=== PATIENT | male | born 1955 | race American Indian/Alaskan Native ===

== ENCOUNTER 2017-06-11 10:33 | Inpatient (IN) | payer MEDICAID ==
[2017-06-11 11:11] LABS: Basophils # (Auto) 0.1 K/mm3 (0.0-0.1); Basophils % (Auto) 0.5 % (0.0-1.8); Eosinophils % (Auto) 0.1 % (0.0-4.3); Hematocrit 42.1 % (35.5-45.6); Hemoglobin 13.9 gm/dl (11.8-15.2); Lymphocytes # (Auto) 1.9 K/mm3 (1.2-5.4); Lymphocytes % (Auto) 15.4 % (13.4-35.0); Mean Corpuscular HGB Conc 33 % (32-34); Mean Corpuscular Hemoglobin 31 pg (28-32); Mean Corpuscular Volume 93 fl (84-94); Monocytes # (Auto) 1.2 K/mm3 (0.0-0.8); Monocytes % (Auto) 10.2 % (0.0-7.3); Platelet Count 223 K/mm3 (140-440); Red Blood Count 4.51 M/mm3 (3.65-5.03); Red Cell Distribution Width 14.6 % (13.2-15.2)
[2017-06-11 11:28] LABS: Alanine Aminotransferase 9 units/L (7-56); Albumin 3.4 g/dL (3.9-5); BUN/Creatinine Ratio 14; Blood Urea Nitrogen 11 mg/dL (9-20); Calcium 9.1 mg/dL (8.4-10.2); Hemolysis Index 19
--- NOTE | 2017-06-11 14:12 | Emergency Department Report ---
ED General Adult HPI - General Chief complaint: Abdominal Pain Stated complaint: CONSTIPATION Time Seen by Provider: 06/11/17 14:03 Source: patient, RN notes reviewed Mode of arrival: Ambulatory Limitations: Other (patient walks with a walker. The patient is a very poor historian) - History of Present Illness Initial comments: This is a 62-year-old male, the patient is previously unknown to this provider, past medical history includes congestive heart failure, diabetes, hypertension, atrial fibrillation, patient reports poor compliance with outpatient medications , his primary care physician used to be with the [facility], he hasn't really followed up since changing insurances, he presents to the ER with a complaint of constipation. It has been going on for a week. It is constant. He does not have exacerbating or relieving factors. Patient reports taking multiple doses of magnesium citrate daily for the past 4 days. He denies headache, chest pain, shortness of breath, palpitations, hematemesis, bright red blood per rectum. The patient also endorses some intermittent dysuria. He describes intermittent constipation and "diarrhea." His symptoms have been constant for the past 4 days, and do not have exacerbating or relieving factors. -: Gradual Consistency: constant Improves with: none Worsens with: none Associated Symptoms: nausea/vomiting. denies: confusion, chest pain, cough, diaphoresis, headaches, loss of appetite, malaise, rash, shortness of breath, syncope, weakness - Related Data Allergies Allergy/AdvReac Type Severity Reaction Status Date / Time clindamycin AdvReac Unknown Verified 06/12/17 09:09 ED Review of Systems ROS: Stated complaint: CONSTIPATION Other details as noted in HPI Constitutional: denies: fever Eyes: denies: eye discharge ENT: denies: epistaxis Respiratory: denies: SOB with exertion Cardiovascular: denies: chest pain, palpitations Gastrointestinal: constipation Genitourinary: dysuria Musculoskeletal: as per HPI Skin: as per HPI Neurological: as per HPI Psychiatric: as per HPI ED Past Medical Hx - Past Medical History Hx Hypertension: Yes Hx Congestive Heart Failure: Yes Hx Diabetes: Yes Additional medical history: A FIB - Social History Smoking Status: Never Smoker Substance Use Type: None ED Physical Exam - General Limitations: Physical Limitation General appearance: alert, anxious - Head Head exam: Present: atraumatic, normocephalic - Eye Eye exam: Present: normal appearance - ENT ENT exam: Present: normal exam, normal orophraynx, mucous membranes moist, normal external ear exam - Neck Neck exam: Present: normal inspection, full ROM - Respiratory Respiratory exam: Present: normal lung sounds bilaterally. Absent: respiratory distress - Cardiovascular Cardiovascular Exam: Present: tachycardia, irregular rhythm, normal heart sounds. Absent: systolic murmur, diastolic murmur, rubs, gallop - GI/Abdominal GI/Abdominal exam: Present: soft, normal bowel sounds. Absent: distended, tenderness, guarding, rebound, rigid, pulsatile mass - Rectal Rectal exam: Present: deferred - Extremities Exam Extremities exam: Present: pedal edema - Back Exam Back exam: Present: normal inspection, full ROM. Absent: tenderness, CVA tenderness (R), paraspinal tenderness, vertebral tenderness - Neurological Exam Neurological exam: Present: alert, oriented X3, CN II-XII intact, normal gait ( patient walks with a steady gait, although he walks with a walker), other ( Extraocular movements intact. Tongue midline. No facial droop. Facial sensation intact to light touch in the V1, V2, V3 distribution bilaterally. 5 and 5 strength in 4 extremities.. Sensation is intact to light touch in 4 extremities.). Absent: motor sensory deficit - Psychiatric Psychiatric exam: Present: anxious. Absent: suicidal ideation - Skin Skin exam: Present: warm, dry, intact, normal color. Absent: rash ED Course Vital Signs 06/11/17 06/11/17 06/11/17 10:35 14:40 14:42 Temperature 97.8 F Pulse Rate 96 H 170 H 185 H Respiratory 20 12 Rate Blood Pressure 137/79 141/102 O2 Sat by Pulse 96 Oximetry 06/11/17 06/11/17 06/11/17 14:45 14:50 14:58 Temperature Pulse Rate 151 H 119 H Respiratory 16 18 Rate Blood Pressure 141/102 125/72 O2 Sat by Pulse 97 Oximetry 06/11/17 06/11/17 06/11/17 15:01 15:10 15:15 Temperature Pulse Rate 118 H 109 H 90 Respiratory 19 14 Rate Blood Pressure 125/72 109/65 109/65 O2 Sat by Pulse 94 95 Oximetry 06/11/17 06/11/17 06/11/17 15:31 15:43 15:45 Temperature Pulse Rate 100 H 95 H 105 H Respiratory 14 14 Rate Blood Pressure 126/86 126/86 121/82 O2 Sat by Pulse 92 92 Oximetry 06/11/17 06/11/17 06/11/17 16:27 16:30 16:45 Temperature Pulse Rate 104 H 102 H 119 H Respiratory 22 21 Rate Blood Pressure 126/86 126/87 121/92 O2 Sat by Pulse 93 Oximetry 06/11/17 06/11/17 06/11/17 17:00 17:15 17:21 Temperature Pulse Rate 113 H 106 H 113 H Respiratory 24 17 Rate Blood Pressure 122/87 140/84 140/84 O2 Sat by Pulse 94 95 Oximetry 06/11/17 06/11/17 06/11/17 17:31 17:45 18:01 Temperature Pulse Rate 125 H 110 H 117 H Respiratory 15 16 13 Rate Blood Pressure 129/91 135/87 145/92 O2 Sat by Pulse 93 93 94 Oximetry 06/11/17 06/11/17 06/11/17 18:11 18:21 18:30 Temperature Pulse Rate 136 H 112 H 116 H Respiratory 25 H 20 21 Rate Blood Pressure 145/92 145/97 137/85 O2 Sat by Pulse 96 96 94 Oximetry 06/11/17 06/11/17 06/11/17 18:41 18:51 19:00 Temperature Pulse Rate 113 H 115 H 123 H Respiratory 17 15 18 Rate Blood Pressure 137/85 130/67 135/78 O2 Sat by Pulse 95 94 92 Oximetry 06/11/17 06/11/17 06/11/17 19:11 19:21 19:30 Temperature Pulse Rate 116 H 113 H 123 H Respiratory 14 16 13 Rate Blood Pressure 135/78 124/72 124/72 O2 Sat by Pulse 94 94 Oximetry 06/11/17 06/11/17 06/11/17 19:40 19:50 20:01 Temperature Pulse Rate 126 H 120 H 115 H Respiratory 14 17 15 Rate Blood Pressure 124/72 140/84 130/80 O2 Sat by Pulse 95 95 93 Oximetry 06/11/17 06/11/17 06/11/17 20:11 20:21 20:31 Temperature Pulse Rate 130 H 109 H 133 H Respiratory 14 14 15 Rate Blood Pressure 140/84 136/83 136/101 O2 Sat by Pulse 94 95 93 Oximetry 06/11/17 06/11/17 06/11/17 20:41 20:51 21:00 Temperature Pulse Rate 130 H 135 H 127 H Respiratory 17 18 17 Rate Blood Pressure 136/101 139/89 144/77 O2 Sat by Pulse 94 94 93 Oximetry 06/11/17 21:15 Temperature Pulse Rate 151 H Respiratory 21 Rate Blood Pressure 136/70 O2 Sat by Pulse 96 Oximetry - Reevaluation(s) Reevaluation #1: 06/11/17 15:11 Patient has been given 20 mg of diltiazem, slow down to the 160s, received another 30, slowed down to the 110s/120s, additional 20 mg ordered IV, and 30 mg ordered orally. Hospital physician, Dr. Montalvo accepted the patient to the medical service. Reevaluation #2: 06/11/17 15:33 Digoxin is a send out lab, and will take a long time to result, I will defer to the inpatient team to follow up on digoxin level. On the similar note, the patient's urinalysis was not resulted as of yet, and I will defer to the inpatient team to follow this up. ED Medical Decision Making - Lab Data Result diagrams: 06/11/17 10:44 06/11/17 10:44 Vital Signs 06/11/17 10:35 Temperature 97.8 F Pulse Rate 96 H Respiratory 20 Rate Blood Pressure 137/79 O2 Sat by Pulse 96 Oximetry Lab Results 06/11/17 06/11/17 Range/Units 10:44 10:44 WBC 12.0 H (4.5-11.0) K/mm3 RBC 4.51 (3.65-5.03) M/mm3 Hgb 13.9 (11.8-15.2) gm/dl Hct 42.1 (35.5-45.6) % MCV 93 (84-94) fl MCH 31 (28-32) pg MCHC 33 (32-34) % RDW 14.6 (13.2-15.2) % Plt Count 223 (140-440) K/mm3 Lymph % (Auto) 15.4 (13.4-35.0) % [place] % (Auto) 10.2 H (0.0-7.3) % Eos % (Auto) 0.1 (0.0-4.3) % Baso % (Auto) 0.5 (0.0-1.8) % Lymph # 1.9 (1.2-5.4) K/mm3 [place] # 1.2 H (0.0-0.8) K/mm3 Eos # 0.0 (0.0-0.4) K/mm3 Baso # 0.1 (0.0-0.1) K/mm3 Seg Neutrophils % 73.8 H (40.0-70.0) % Seg Neutrophils # 8.9 H (1.8-7.7) K/mm3 Sodium 134 L (137-145) mmol/L Potassium 4.4 (3.6-5.0) mmol/L Chloride 92.1 L (98-107) mmol/L Carbon Dioxide 24 (22-30) mmol/L Anion Gap 22 mmol/L BUN 11 (9-20) mg/dL Creatinine 0.8 (0.8-1.5) mg/dL Estimated GFR > 60 ml/min BUN/Creatinine Ratio 14 % Glucose 482 H (75-100) mg/dL Calcium 9.1 (8.4-10.2) mg/dL Total Bilirubin 1.60 H (0.1-1.2) mg/dL AST 13 (5-40) units/L ALT 9 (7-56) units/L Alkaline Phosphatase 110 (35-129) units/L Total Protein 7.9 (6.3-8.2) g/dL Albumin 3.4 L (3.9-5) g/dL Albumin/Globulin Ratio 0.8 % - EKG Data 06/11/17 14:43 Atrial fibrillation, rapid ventricular response, left axis deviation, not having chest pain, bundle branch block, abnormal EKG, but morphologically consistent with STEMI, QTC prolonged - Radiology Data Radiology results: pending, image reviewed - Medical Decision Making Differential diagnosis, including but not limited to: Electrolyte derangement, thyroid derangement, A. fib with RVR, medication noncompliance Assessment and plan: 62-year-old male with a complaint of constipation. He is afebrile with initially reassuring vital signs, and on physical exam is found to be in A. fib with RVR, and this is corroborated by an EKG. The patient is poorly compliant with his medications. He will be started on IV diltiazem. X- rays pending. Additional laboratory studies pending. Patient is not reliable for follow-up, he'll be admitted for rate control. Hospital physician is paged to facilitate and arrange admission. Critical Care Time: Yes Critical care time in (mins) excluding proc time.: 35 Critical care attestation.: If time is entered above; I have spent that time in minutes in the direct care of this critically ill patient, excluding procedure time. ED Disposition Clinical Impression: Atrial fibrillation with RVR Disposition: [id number] OP ADMIT IP TO THIS HOSP Is pt being admited?: Yes Condition: Good
[2017-06-11] MEDS ORDERED: CARDIZEM IV ONE ×5 (14:37→17:13)
[2017-06-11] MEDS ORDERED: CARDIZEM PO ONE (15:11)
[2017-06-11 15:17] LABS: INR 1.29 (0.87-1.13); Partial Thromboplastin Time 31.6 Sec. (24.2-36.6)
[2017-06-11] MEDS ORDERED: LOVENOX SUB-Q ONE (15:33)
[2017-06-11 15:53] LABS: Bilirubin,Urine NEG (Negative); Blood,Urine LG (Negative); Color,Urine Yellow (Yellow); Nitrite,Urine POS (Negative); Urobilinogen,Urine < 2.0 mg/dL (<2.0)
[2017-06-11 16:14] LABS: WBC,Urine > 182.0 /HPF (0.0-6.0)
--- NOTE | 2017-06-11 17:07 | XRay Report ---
FINAL REPORT PROCEDURE: XR ABD SERIES W CXR 1V TECHNIQUE: Abdominal series complete, including supine and upright AP views of the abdomen and frontal chest. HISTORY: abd pressure constipation COMPARISON: No prior studies are available for comparison. FINDINGS: Heart: Cardiac silhouette is at the upper limit of normal in size. Mediastinum/Vessels: Aortic calcification. Lungs/Pleural space: No infiltrate, effusion, or pneumothorax is seen. Bowel gas pattern: Nonobstructive. Masses or calcifications: None. Bony structures: No acute osseous abnormality. Other: No free intraperitoneal air. IMPRESSION: Nonobstructive bowel gas pattern. Cardiac silhouette is at the upper limit of normal in size.
[2017-06-11] MEDS ORDERED: D50W (25GM) Syringe IV PRN (21:17)
[2017-06-11] MEDS: NOVOLOG SUB-Q SCH (21:45)
--- NOTE | 2017-06-12 00:04 | History and Physical Report ---
History of Present Illness Date of examination: 06/11/17 Date of admission: 06/11/17 15:33 Chief complaint: CC Constipation and Palpitations 4 days History of present illness: History of Present Illness 62-year-old AA male, withpast medical history includes congestive heart failure , diabetes, hypertension, atrial fibrillation, reports poor compliance with outpatient medications, his primary care physician used to be with [facility], he hasn't really followed up since changing insurances, presents to the ER with a complaint of constipation. It has been going on for a week. It is constant. He does not have exacerbating or relieving factors. Patient reports taking multiple doses of magnesium citrate daily for the past 4 days. He denies headache, chest pain, shortness of breath, palpitations, hematemesis, bright red blood per rectum. The patient also endorses some intermittent dysuria. He describes intermittent constipation and "diarrhea." His symptoms have been constant for the past 4 days, and do not have exacerbating or relieving factors. Past Medical History Hx Hypertension: Yes Hx Congestive Heart Failure: Yes Hx Diabetes: Yes Additional medical history: A FIB Surgical hx None Social History Smoking Status: Never Smoker Substance Use Type: None Family Hx Htn Medications and Allergies Allergies Allergy/AdvReac Type Severity Reaction Status Date / Time No Known Allergies Allergy Unverified 06/11/17 10:42 Active Meds: Active Medications Dextrose (D50w (25gm) Syringe) 50 ml IV PRN PRN PRN Reason: Hypoglycemia Influenza Virus Vaccine Quadrival (Fluarix Quad [id number](36 Mos+) 0.5 ml IM .ONCE ONE Stop: 06/12/17 12:01 Insulin Aspart (Novolog) 0 units SUB-Q ACHS DANIA PRN Reason: Protocol Last Admin: 06/11/17 21:45 Dose: 10 units Review of Systems All systems: negative Constitutional: no weight loss, no weight gain, no fever, no chills, no sweats Ears, nose, mouth and throat: no hoarseness, no sore throat, no swelling in mouth, no swelling in throat, no odynophagia Cardiovascular: orthopnea, palpitations, rapid/irregular heart beat, shortness of breath, dyspnea on exertion, no chest pain Respiratory: dyspnea on exertion, no cough, no cough with sputum, no excessive sputum, no hemoptysis Gastrointestinal: constipation, no abdominal pain, no nausea, no vomiting Genitourinary Male: no dysuria, no hematuria, no flank pain, no discharge, no urinary frequency Rectal: no pain Musculoskeletal: no neck stiffness, no neck pain, no shooting arm pain, no arm numbness/tingling, no low back pain, no shooting leg pain Integumentary: no rash, no pruritis, no redness, no sores Neurological: no head injury, no seizures, no syncope Psychiatric: no anxiety, no memory loss, no change in sleep habits, no sleep disturbances, no insomnia Endocrine: no cold intolerance, no heat intolerance, no polyphagia, no excessive thirst, no polydipsia, no polyuria Hematologic/Lymphatic: no easy bruising, no easy bleeding Allergic/Immunologic: no urticaria, no allergic rhinitis, no wheezing Exam - Constitutional Vitals: Temp Pulse Resp BP Pulse Ox 98.1 F 101 H 18 143/80 95 06/11/17 22:46 06/11/17 22:46 06/11/17 22:46 06/11/17 22:46 06/11/17 22:46 General appearance: Present: no acute distress, well-nourished - EENT Eyes: Present: PERRL ENT: hearing intact, clear oral mucosa - Neck Neck: Present: supple, normal ROM - Respiratory Respiratory effort: normal Respiratory: bilateral: CTA, rhonchi - Cardiovascular Heart rate: 120 Rhythm: irregularly irregular Heart Sounds: Present: S1 & S2. Absent: rub, click - Extremities Extremities: no ischemia, pulses intact, pulses symmetrical, No edema Peripheral Pulses: within normal limits - Abdominal General gastrointestinal: Present: soft, non-tender, non-distended, normal bowel sounds Male genitourinary: Present: normal - Rectal Rectal Exam: deferred - Integumentary Integumentary: Present: clear, warm, dry - Musculoskeletal Musculoskeletal: gait normal, strength equal bilaterally - Psychiatric Psychiatric: appropriate mood/affect, intact judgment & insight - Neurologic Neurologic: CNII-XII intact, moves all extremities - Allied Health Allied health notes reviewed: nursing, case management Results - Labs CBC & Chem 7: 06/11/17 10:44 06/11/17 10:44 Labs: Laboratory Last Values WBC 12.0 K/mm3 (4.5-11.0) H 06/11/17 10:44 RBC 4.51 M/mm3 (3.65-5.03) 06/11/17 10:44 Hgb 13.9 gm/dl (11.8-15.2) 06/11/17 10:44 Hct 42.1 % (35.5-45.6) 06/11/17 10:44 MCV 93 fl (84-94) 06/11/17 10:44 MCH 31 pg (28-32) 06/11/17 10:44 MCHC 33 % (32-34) 06/11/17 10:44 RDW 14.6 % (13.2-15.2) 06/11/17 10:44 Plt Count 223 K/mm3 (140-440) 06/11/17 10:44 Lymph % (Auto) 15.4 % (13.4-35.0) 06/11/17 10:44 [place] % (Auto) 10.2 % (0.0-7.3) H 06/11/17 10:44 Eos % (Auto) 0.1 % (0.0-4.3) 06/11/17 10:44 Baso % (Auto) 0.5 % (0.0-1.8) 06/11/17 10:44 Lymph # 1.9 K/mm3 (1.2-5.4) 06/11/17 10:44 [place] # 1.2 K/mm3 (0.0-0.8) H 06/11/17 10:44 Eos # 0.0 K/mm3 (0.0-0.4) 06/11/17 10:44 Baso # 0.1 K/mm3 (0.0-0.1) 06/11/17 10:44 Seg Neutrophils % 73.8 % (40.0-70.0) H 06/11/17 10:44 Seg Neutrophils # 8.9 K/mm3 (1.8-7.7) H 06/11/17 10:44 PT 16.8 Sec. (12.2-14.9) H 06/11/17 14:50 INR 1.29 (0.87-1.13) H 06/11/17 14:50 APTT 31.6 Sec. (24.2-36.6) 06/11/17 14:50 Sodium 134 mmol/L (137-145) L 06/11/17 10:44 Potassium 4.4 mmol/L (3.6-5.0) 06/11/17 10:44 Chloride 92.1 mmol/L (98-107) L 06/11/17 10:44 Carbon Dioxide 24 mmol/L (22-30) 06/11/17 10:44 Anion Gap 22 mmol/L 06/11/17 10:44 BUN 11 mg/dL (9-20) 06/11/17 10:44 Creatinine 0.8 mg/dL (0.8-1.5) 06/11/17 10:44 Estimated GFR > 60 ml/min 06/11/17 10:44 BUN/Creatinine Ratio 14 % 06/11/17 10:44 Glucose 482 mg/dL (75-100) H 06/11/17 10:44 POC Glucose 366 (70-105) H 06/11/17 21:14 Calcium 9.1 mg/dL (8.4-10.2) 06/11/17 10:44 Magnesium 2.20 mg/dL (1.7-2.3) 06/11/17 14:50 Total Bilirubin 1.60 mg/dL (0.1-1.2) H 06/11/17 10:44 AST 13 units/L (5-40) 06/11/17 10:44 ALT 9 units/L (7-56) 06/11/17 10:44 Alkaline Phosphatase 110 units/L (35-129) 06/11/17 10:44 Total Protein 7.9 g/dL (6.3-8.2) 06/11/17 10:44 Albumin 3.4 g/dL (3.9-5) L 06/11/17 10:44 Albumin/Globulin Ratio 0.8 % 06/11/17 10:44 TSH 2.070 mlU/mL (0.270-4.200) 06/11/17 14:50 Free T4 1.42 ng/dL (0.76-1.46) 06/11/17 14:50 Urine Color Yellow (Yellow) 06/11/17 15:06 Urine Turbidity Cloudy (Clear) 06/11/17 15:06 Urine pH 6.0 (5.0-7.0) 06/11/17 15:06 Ur Specific [place] 1.032 (1.003-1.030) H 06/11/17 15:06 Urine Protein 30 mg/dl mg/dL (Negative) 06/11/17 15:06 Urine Glucose (UA) >=500 mg/dL (Negative) 06/11/17 15:06 Urine Ketones Tr mg/dL (Negative) 06/11/17 15:06 Urine Blood Lg (Negative) 06/11/17 15:06 Urine Nitrite Pos (Negative) 06/11/17 15:06 Urine Bilirubin Neg (Negative) 06/11/17 15:06 Urine Urobilinogen < 2.0 mg/dL (<2.0) 06/11/17 15:06 Ur Leukocyte Esterase Lg (Negative) 06/11/17 15:06 Urine WBC (Auto) > 182.0 /HPF (0.0-6.0) H 06/11/17 15:06 Urine RBC (Auto) 34.0 /HPF (0.0-6.0) 06/11/17 15:06 Urine WBC Clumps 3+ /HPF 06/11/17 15:06 - Imaging and Cardiology EKG: report reviewed (Afib with rvr 160 per min) Chest x-ray: report reviewed (Non obstructive bowel gas pattern) Assessment and Plan Advance Directives: Yes (Full code) VTE prophylaxis?: Chemical Plan of care discussed with patient/family: Yes - Patient Problems (1) Atrial fibrillation with RVR Current Visit: Yes Status: Acute Plan to address problem: IV cardizem and po cardizem for now Cardiology consult requested (2) Acute exacerbation of CHF (congestive heart failure) Current Visit: Yes Status: Acute Qualifiers: Congestive heart failure type: combined Qualified Code(s): I50.43 - Acute on chronic combined systolic (congestive) and diastolic (congestive) heart failure Plan to address problem: IV Lasix Check Echo BNP pending (3) HTN (hypertension) Current Visit: Yes Status: Chronic Qualifiers: Hypertension type: essential hypertension Qualified Code(s): I10 - Essential (primary) hypertension Plan to address problem: Reasonable Conr antihypertensives (4) T2DM (type 2 diabetes mellitus) Current Visit: Yes Status: Chronic Qualifiers: Diabetes mellitus complication status: without complication Diabetes mellitus remote computer terminal operator insulin use: without long-term use Qualified Code(s): E11.9 - Type 2 diabetes mellitus without complications Plan to address problem: Blood Glucose levels hogh Home meds not available for reconciliation Started on Levemir 15 sq hs (5) UTI (urinary tract infection) Current Visit: Yes Status: Acute Qualifiers: Urinary tract infection type: acute cystitis Plan to address problem: Started on Rocephin (6) DVT prophylaxis Current Visit: Yes Status: Acute Plan to address problem: On Lovenox
[2017-06-12] MEDS: LOPRESSOR IV PRN ×2 (00:24→05:37)
[2017-06-12] MEDS ORDERED: CARDIZEM ONE (02:59)
[2017-06-12] MEDS ORDERED: LANOXIN PO ONE (03:04)
--- NOTE | 2017-06-12 03:25 | Event Note ---
Date: 06/12/17 Code MET Patient with A. fib of grade 180s He was given IV lopressor with transient decrease in heart rate IV Cardizem given with good results give oral digoxin
[2017-06-12] MEDS ORDERED: ROCEPHIN/NS 2 GM/100 ML 2 GM/100 ML BAG IV SCH ×2 (07:33→10:00)
[2017-06-12] MEDS ORDERED: CARDIZEM CD PO NR (08:00)
[2017-06-12] MEDS ORDERED: DULCOLAX PR ONE (09:00)
--- NOTE | 2017-06-12 09:15 | Progress Note ---
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 I have spoken with [employer] Inspector, Dr. Mina. -Constipation: Treat with Dulcolax suppository 1, order portable abdominal x- ray unremarkable, get CT ab/pelvis, start miralax, -UTI most likely prostatitis: Treat with IV antibiotics, follow urine culture, needs outpatient urology follow-up for PSA and prostate cancer evaluation -A. fib RVR: Cardiology to manage -Type 2 diabetes mellitus, uncontrolled: levemir and ssi -DVT prophylaxis: started on a/c History Interval history: Patient seen and examined. His main compliant is constipation and burning urine. Constipated x 1 week, only relief from mag citrate. His last colonoscopy less than 5 years ago and prostate was ok but details are vague. No cp, sob, palpitations. He just doesn't understand why we are focused on the heart rate and heart when his main issue is constipation. Hospitalist Physical - Physical exam Narrative exam: GEN: Morbidly obese malnutrition are present such as atrophic hypotenar muscles and judaism muscle wasting NAD, AWAKE, ALERT, ORIENTATED x 3 HEENT: NCAT, EOMI, PERRL, OP Clear NECK: supple, no adenopathy, no thyromegaly, no JVD CVS/HEART: irregular irregular, NORMAL S1S2, NO JVD, pulses present bilaterally CHEST/LUNGS: CTA B, Symmetrical chest expansion, good air entry bilaterally GI/Abdomen: soft, NTND, good bowel sounds, no guarding or rebound /Bladder: no suprapubic tenderness, no CVA or paraspinal tenderness EXT/Skin: pretibial edema, multiple healed skin breakdown, left elbow with skin tear. MSK: FROM x 4 Neuro: CN 2-12 grossly intact except left hearing loss, no new focal deficits Psych: calm - Constitutional Vitals: Temp Pulse Resp BP Pulse Ox 98.1 F 170 H 18 135/96 96 06/11/17 22:46 06/12/17 05:37 06/11/17 22:46 06/12/17 05:37 06/12/17 02:55 General appearance: Present: no acute distress, well-nourished Results - Labs CBC & Chem 7: 06/11/17 10:44 06/11/17 10:44 Labs: Laboratory Last Values WBC 12.0 K/mm3 (4.5-11.0) H 06/11/17 10:44 RBC 4.51 M/mm3 (3.65-5.03) 06/11/17 10:44 Hgb 13.9 gm/dl (11.8-15.2) 06/11/17 10:44 Hct 42.1 % (35.5-45.6) 06/11/17 10:44 MCV 93 fl (84-94) 06/11/17 10:44 MCH 31 pg (28-32) 06/11/17 10:44 MCHC 33 % (32-34) 06/11/17 10:44 RDW 14.6 % (13.2-15.2) 06/11/17 10:44 Plt Count 223 K/mm3 (140-440) 06/11/17 10:44 Lymph % (Auto) 15.4 % (13.4-35.0) 06/11/17 10:44 [place] % (Auto) 10.2 % (0.0-7.3) H 06/11/17 10:44 Eos % (Auto) 0.1 % (0.0-4.3) 06/11/17 10:44 Baso % (Auto) 0.5 % (0.0-1.8) 06/11/17 10:44 Lymph # 1.9 K/mm3 (1.2-5.4) 06/11/17 10:44 [place]ole # 1.2 K/mm3 (0.0-0.8) H 06/11/17 10:44 Eos # 0.0 K/mm3 (0.0-0.4) 06/11/17 10:44 Baso # 0.1 K/mm3 (0.0-0.1) 06/11/17 10:44 Seg Neutrophils % 73.8 % (40.0-70.0) H 06/11/17 10:44 Seg Neutrophils # 8.9 K/mm3 (1.8-7.7) H 06/11/17 10:44 PT 16.8 Sec. (12.2-14.9) H 06/11/17 14:50 INR 1.29 (0.87-1.13) H 06/11/17 14:50 APTT 31.6 Sec. (24.2-36.6) 06/11/17 14:50 Sodium 134 mmol/L (137-145) L 06/11/17 10:44 Potassium 4.4 mmol/L (3.6-5.0) 06/11/17 10:44 Chloride 92.1 mmol/L (98-107) L 06/11/17 10:44 Carbon Dioxide 24 mmol/L (22-30) 06/11/17 10:44 Anion Gap 22 mmol/L 06/11/17 10:44 BUN 11 mg/dL (9-20) 06/11/17 10:44 Creatinine 0.8 mg/dL (0.8-1.5) 06/11/17 10:44 Estimated GFR > 60 ml/min 06/11/17 10:44 BUN/Creatinine Ratio 14 % 06/11/17 10:44 Glucose 482 mg/dL (75-100) H 06/11/17 10:44 POC Glucose 327 (70-105) H 06/12/17 03:00 Calcium 9.1 mg/dL (8.4-10.2) 06/11/17 10:44 Magnesium 2.20 mg/dL (1.7-2.3) 06/11/17 14:50 Total Bilirubin 1.60 mg/dL (0.1-1.2) H 06/11/17 10:44 AST 13 units/L (5-40) 06/11/17 10:44 ALT 9 units/L (7-56) 06/11/17 10:44 Alkaline Phosphatase 110 units/L (35-129) 06/11/17 10:44 NT-Pro-B Natriuret Pep 511.7 pg/mL (0-900) 06/12/17 07:50 Total Protein 7.9 g/dL (6.3-8.2) 06/11/17 10:44 Albumin 3.4 g/dL (3.9-5) L 06/11/17 10:44 Albumin/Globulin Ratio 0.8 % 06/11/17 10:44 TSH 2.070 mlU/mL (0.270-4.200) 06/11/17 14:50 Free T4 1.42 ng/dL (0.76-1.46) 06/11/17 14:50 Urine Color Yellow (Yellow) 06/11/17 15:06 Urine Turbidity Cloudy (Clear) 06/11/17 15:06 Urine pH 6.0 (5.0-7.0) 06/11/17 15:06 Ur Specific [place] 1.032 (1.003-1.030) H 06/11/17 15:06 Urine Protein 30 mg/dl mg/dL (Negative) 06/11/17 15:06 Urine Glucose (UA) >=500 mg/dL (Negative) 06/11/17 15:06 Urine Ketones Tr mg/dL (Negative) 06/11/17 15:06 Urine Blood Lg (Negative) 06/11/17 15:06 Urine Nitrite Pos (Negative) 06/11/17 15:06 Urine Bilirubin Neg (Negative) 06/11/17 15:06 Urine Urobilinogen < 2.0 mg/dL (<2.0) 06/11/17 15:06 Ur Leukocyte Esterase Lg (Negative) 06/11/17 15:06 Urine WBC (Auto) > 182.0 /HPF (0.0-6.0) H 06/11/17 15:06 Urine RBC (Auto) 34.0 /HPF (0.0-6.0) 06/11/17 15:06 Urine WBC Clumps 3+ /HPF 06/11/17 15:06
[2017-06-12] MEDS: NOVOLOG SUB-Q SCH ×4 (09:48→21:15)
[2017-06-12] MEDS: K-DUR PO SCH ×2 (09:52→21:15)
[2017-06-12] MEDS ORDERED: Fluarix Quad 2017-2018(36 MOS+ IM ONE (12:00)
--- NOTE | 2017-06-12 12:41 | Consultation ---
History of Present Illness Consult date: 06/12/17 Consult reason: atrial fibrillation History of present illness: The patient is a 62-year-old man, morbidly obese weighing over 400 pounds. He presents to the hospital at this time primary complaints of persistent constipation and lower abdominal pain. While in the emergency room, he was found with multiple other clinical issues including atrial fibrillation and uncontrolled diabetes with a blood sugar 482. Cardiology consultation was requested for management of his atrial fibrillation. He has a long history of atrial fibrillation dating back several years. He states that he was under the care of [facility] group chief operator, and initial attempts at cardioversion were unsuccessful following which he was treated for chronic atrial fibrillation with warfarin and digoxin. Due to loss of his [employer] insurance about 8 months ago, he has been unable to afford his medications and so has been noncompliant with his medications for his atrial fibrillation and diabetes. He denies any history of coronary artery disease or heart failure. On this presentation, there is no chest pain, no unusual shortness of breath, no palpitations and no lower extremity edema. His main complaint was his constipation which he continues to express this is major problem. Past History Past Medical History: atrial fib, diabetes, hypertension Medications and Allergies Allergies Allergy/AdvReac Type Severity Reaction Status Date / Time clindamycin AdvReac Unknown Verified 06/12/17 09:09 Active Meds: Active Medications Dextrose (D50w (25gm) Syringe) 50 ml IV PRN PRN PRN Reason: Hypoglycemia Diltiazem HCl (Cardizem Cd) 180 mg PO QDAY DANIA Enoxaparin Sodium (Lovenox) 40 mg SUB-Q QDAY@2200 DANIA Furosemide (Lasix) 40 mg IV 0600,1800 DANIA Ceftriaxone Sodium 2 gm/ (Sodium Chloride) 20 mls @ 20 mls/10 min IV Q24HR DANIA Insulin Aspart (Novolog) 0 units SUB-Q ACHS DANIA PRN Reason: Protocol Last Admin: 06/12/17 09:48 Dose: 10 units Insulin Detemir (Levemir) 15 units SUB-Q QHS DANIA Metoprolol Tartrate (Lopressor) 5 mg IV Q6H PRN PRN Reason: HENRIETTA HR Last Admin: 06/12/17 05:37 Dose: 5 mg Potassium Chloride (K-Dur) 20 meq PO BID DANIA Last Admin: 06/12/17 09:52 Dose: 20 meq Review of Systems Cardiovascular: shortness of breath, no chest pain, no orthopnea, no palpitations, no rapid/irregular heart beat, no edema, no syncope, no lightheadedness Physical Examination Vital Signs Temp Pulse Resp BP Pulse Ox 97.8 F 96 H 20 137/79 96 06/11/17 10:35 06/11/17 10:35 06/11/17 10:35 06/11/17 10:35 06/11/17 10:35 General appearance: no acute distress, other (morbidly obese) HEENT: Positive: PERRL Neck: Positive: neck supple Cardiac: Positive: irregularly irregular Lungs: Positive: Decreased Breath Sounds Neuro: Positive: Grossly Intact Abdomen: Positive: Soft Male genitourinary: Positive: deferred Skin: Positive: Clear Extremities: Absent: edema Results 06/11/17 10:44 06/11/17 10:44 Coagulation 06/11/17 Range/Units 14:50 PT 16.8 H (12.2-14.9) Sec. INR 1.29 H (0.87-1.13) APTT 31.6 (24.2-36.6) Sec. EKG interpretations - Telemetry EKG Rhythm: Atrial Fibrillation Assessment and Plan - Patient Problems (1) Atrial fibrillation with RVR Current Visit: Yes Status: Acute Plan to address problem: The patient has chronic atrial fibrillation, has not been compliant with his medical therapy including digitalis and warfarin. We will recommend resumption of atrial fibrillation rate control agents, digitalis and Cardizem, and resumption of oral anticoagulation therapy with warfarin. An echocardiogram will be done for left ventricular function assessment. We'll defer to the medical service for management of the patient's presenting constipation and uncontrolled diabetes.
[2017-06-12] MEDS ORDERED: LOPRESSOR IV PRN ×2 (12:46→16:02)
[2017-06-12] MEDS: cefTRIAXone 2 GM in NACL 0.9% 20 ML IV SCH (13:53)
[2017-06-12] MEDS: LANOXIN IV SCH ×2 (14:41→21:14)
[2017-06-12] MEDS: CARDIZEM PO SCH ×2 (14:46→18:47)
[2017-06-12] MEDS ORDERED: NACL ONE (18:31)
[2017-06-12] MEDS: COUMADIN PO SCH (18:47)
--- NOTE | 2017-06-12 19:35 | Cat Scan Report ---
FINAL REPORT PROCEDURE: CT ABDOMEN PELVIS W CON TECHNIQUE: Computerized axial tomography of the abdomen and pelvis was performed after the IV injection of iodinated nonionic contrast. HISTORY: severe constipation, dysuria COMPARISON: No prior studies are available for comparison. FINDINGS: Lower Lung murrell: No focal abnormality seen. Upper Abdomen: The liver is enlarged and shows diffuse decreased density consistent with fatty infiltration. No discrete liver lesions are identified. The gallbladder is unremarkable. The adrenal glands, the pancreas and the spleen are unremarkable. Kidneys, Ureters and Urinary bladder: The kidneys and ureters are unremarkable. The gallbladder is incompletely filled although other stover appears significantly diffusely thickened. I cannot exclude cystitis or muscular hypertrophy.. Retroperitoneum: Atherosclerotic changes are seen in the abdominal aorta. No aneurysm is visualized. Nonspecific subcentimeter lymph nodes are seen in the retroperitoneum. No pathologically enlarged lymph nodes are identified. Bowel: There is no evidence of bowel obstruction or ascites. No free intraperitoneal gas is visualized. No focal bowel loop abnormalities are identified. The appendix is not visualized. Small umbilical hernia containing adipose tissue is visualized. No herniated loops of bowel are seen. Stool burden within the colon is unremarkable. I do not see evidence of constipation. Reproductive organs: There is nonspecific diffuse prostate enlargement. Other: Bilateral spondylolysis is present at L4 with grade 1 spondylolisthesis. No acute bony abnormalities are identified. IMPRESSION: Hepatomegaly with evidence of fatty infiltration of the liver. Stover of the urinary bladder are thicker than expected. This may be due to lack of distension. I cannot exclude cystitis or muscular hypertrophy. Nonspecific diffuse prostate enlargement. No focal bowel loop abnormalities are identified as described above. Bilateral spondylolysis L4 with grade 1 spondylolisthesis.
[2017-06-12] MEDS: LASIX IV SCH (21:14)
[2017-06-12] MEDS: LOVENOX SUB-Q SCH (21:14)
[2017-06-12] MEDS: MIRALAX 3350 PO SCH (21:16)
[2017-06-12] MEDS ORDERED: LEVEMIR SUB-Q SCH (22:00)
[2017-06-13] MEDS: CARDIZEM PO SCH ×3 (00:29→17:55)
[2017-06-13] MEDS: LASIX IV SCH ×2 (05:19→17:56)
[2017-06-13 06:12] LABS: Hematocrit 38.8 % (35.5-45.6); Mean Corpuscular HGB Conc 34 % (32-34); Mean Corpuscular Hemoglobin 31 pg (28-32); Mean Corpuscular Volume 92 fl (84-94); Platelet Count 191 K/mm3 (140-440); Red Blood Count 4.22 M/mm3 (3.65-5.03); Red Cell Distribution Width 14.5 % (13.2-15.2)
[2017-06-13 06:32] LABS: BUN/Creatinine Ratio 13; Blood Urea Nitrogen 8 mg/dL (9-20); Calcium 8.7 mg/dL (8.4-10.2); Hemolysis Index 2
[2017-06-13 07:19] LABS: INR 1.31 (0.87-1.13)
[2017-06-13] MEDS: NOVOLOG SUB-Q SCH ×5 (08:22→22:37)
[2017-06-13] MEDS ORDERED: K-DUR PO ONE (09:01)
[2017-06-13] MEDS: K-DUR PO SCH ×2 (09:23→22:36)
[2017-06-13] MEDS: MIRALAX 3350 PO SCH ×2 (09:29→16:28)
[2017-06-13] MEDS ORDERED: CARDIZEM CD PO SCH (10:00)
[2017-06-13] MEDS: cefTRIAXone 2 GM in NACL 0.9% 20 ML IV SCH (10:39)
--- NOTE | 2017-06-13 13:36 | Progress Note ---
Assessment and Plan - Patient Problems (1) Atrial fibrillation with RVR Current Visit: Yes Status: Acute Plan to address problem: The patient has chronic atrial fibrillation, has not been compliant with his medical therapy including digitalis and warfarin. We will recommend resumption of atrial fibrillation rate control agents, digitalis and Cardizem, and resumption of oral anticoagulation therapy with warfarin. An echocardiogram will be done for left ventricular function assessment. We'll defer to the medical service for management of the patient's presenting constipation and uncontrolled diabetes. Subjective Date of service: 06/13/17 Interval history: Patient is comfortable, no new cardiac complaints. Objective Vital Signs Temp Pulse Resp BP Pulse Ox 06/13/17 11:30 99.7 F H 92 H 18 128/81 95 06/13/17 10:00 18 06/13/17 09:24 167 H 06/13/17 08:17 99.2 F 113 H 22 135/75 95 06/13/17 04:11 98.2 F 114 H 18 148/97 93 06/12/17 23:53 98.0 F 116 H 18 129/72 96 06/12/17 20:00 109 H 06/12/17 19:35 98.3 F 98 H 18 152/89 96 06/12/17 18:47 133 H 139/88 06/12/17 17:34 96 H 139/88 96 06/12/17 14:46 155 H 126/88 06/12/17 14:41 155 H 126/88 - Physical Examination General: No Apparent Distress HEENT: Positive: PERRL Neck: Positive: neck supple Cardiac: Positive: irregularly irregular Lungs: Positive: Decreased Breath Sounds Neuro: Positive: Grossly Intact Abdomen: Positive: Soft Skin: Positive: Clear Extremities: Absent: edema - Labs and Meds Coagulation 06/13/17 Range/Units 04:56 PT 17.0 H (12.2-14.9) Sec. INR 1.31 H (0.87-1.13) CBC 06/13/17 Range/Units 04:56 WBC 12.8 H (4.5-11.0) K/mm3 RBC 4.22 (3.65-5.03) M/mm3 Hgb 13.0 (11.8-15.2) gm/dl Hct 38.8 (35.5-45.6) % Plt Count 191 (140-440) K/mm3 Comprehensive Metabolic Panel 06/13/17 Range/Units 04:56 Sodium 133 L (137-145) mmol/L Potassium 3.5 L D (3.6-5.0) mmol/L Chloride 94.4 L (98-107) mmol/L Carbon Dioxide 26 (22-30) mmol/L BUN 8 L (9-20) mg/dL Creatinine 0.6 L (0.8-1.5) mg/dL Glucose 237 H (75-100) mg/dL Calcium 8.7 (8.4-10.2) mg/dL - Imaging and Cardiology EKG: report reviewed (Afib with rvr 160 per min)
[2017-06-13] MEDS ORDERED: CARDIZEM PO SCH ×2 (14:00→16:00)
--- NOTE | 2017-06-13 15:22 | Progress Note ---
Assessment and Plan Assessment and plan: Patient is a 62 yo man with h/o htn, dm type 2 with peripheral neuropathy, left hearing loss from clindamycin, CHF, atrial fibrillation and noncompliance with medication due to loss of [employer] insurance who presented with constipation and dysuria, he was found to have UTI on urinalysis and AFib with rvr; he received multiple doses of IV Cardizem and one dose of digoxin. I have spoken with [facility] Worker, Dr. Mina. -Constipation: Treat with Dulcolax suppository 1, order portable abdominal x- ray unremarkable, get CT ab/pelvis, start miralax, -UTI most likely prostatitis: Treat with IV antibiotics, follow urine culture, needs outpatient urology follow-up for PSA and prostate cancer evaluation -A. fib RVR: Cardiology to manage -Type 2 diabetes mellitus, uncontrolled: levemir and ssi -DVT prophylaxis: started on a/c -BPH and bladder wall thicken: outpatient urology Evaluation increased Levemir once heart rate under control will discharge, probable tomorrow History Interval history: Patient seen and examined. His main compliant is constipation and burning urine. Constipated x 1 week, only relief from mag citrate. His last colonoscopy less than 5 years ago and prostate was ok but details are vague. No cp, sob, palpitations. He just doesn't understand why we are focused on the heart rate and heart when his main issue is constipation. He did have relief with suppository and miralax Hospitalist Physical - Physical exam Narrative exam: GEN: Morbidly obese malnutrition are present such as atrophic hypotenar muscles and religious muscle wasting NAD, AWAKE, ALERT, ORIENTATED x 3 HEENT: NCAT, EOMI, PERRL, OP Clear NECK: supple, no adenopathy, no thyromegaly, no JVD CVS/HEART: irregular irregular, NORMAL S1S2, NO JVD, pulses present bilaterally CHEST/LUNGS: CTA B, Symmetrical chest expansion, good air entry bilaterally GI/Abdomen: soft, NTND, good bowel sounds, no guarding or rebound /Bladder: no suprapubic tenderness, no CVA or paraspinal tenderness EXT/Skin: pretibial edema, multiple healed skin breakdown, left elbow with skin tear. MSK: FROM x 4 Neuro: CN 2-12 grossly intact except left hearing loss, no new focal deficits Psych: calm - Constitutional Vitals: Temp Pulse Resp BP Pulse Ox 99.7 F H 92 H 18 128/81 95 06/13/17 11:30 06/13/17 11:30 06/13/17 11:30 06/13/17 11:30 06/13/17 11:30 General appearance: Present: no acute distress, well-nourished Results - Labs CBC & Chem 7: 06/13/17 04:56 06/13/17 04:56 Labs: Laboratory Last Values WBC 12.8 K/mm3 (4.5-11.0) H 06/13/17 04:56 RBC 4.22 M/mm3 (3.65-5.03) 06/13/17 04:56 Hgb 13.0 gm/dl (11.8-15.2) 06/13/17 04:56 Hct 38.8 % (35.5-45.6) 06/13/17 04:56 MCV 92 fl (84-94) 06/13/17 04:56 MCH 31 pg (28-32) 06/13/17 04:56 MCHC 34 % (32-34) 06/13/17 04:56 RDW 14.5 % (13.2-15.2) 06/13/17 04:56 Plt Count 191 K/mm3 (140-440) 06/13/17 04:56 Lymph % (Auto) 15.4 % (13.4-35.0) 06/11/17 10:44 [place] % (Auto) 10.2 % (0.0-7.3) H 06/11/17 10:44 Eos % (Auto) 0.1 % (0.0-4.3) 06/11/17 10:44 Baso % (Auto) 0.5 % (0.0-1.8) 06/11/17 10:44 Lymph # 1.9 K/mm3 (1.2-5.4) 06/11/17 10:44 [place] # 1.2 K/mm3 (0.0-0.8) H 06/11/17 10:44 Eos # 0.0 K/mm3 (0.0-0.4) 06/11/17 10:44 Baso # 0.1 K/mm3 (0.0-0.1) 06/11/17 10:44 Seg Neutrophils % 73.8 % (40.0-70.0) H 06/11/17 10:44 Seg Neutrophils # 8.9 K/mm3 (1.8-7.7) H 06/11/17 10:44 PT 17.0 Sec. (12.2-14.9) H 06/13/17 04:56 INR 1.31 (0.87-1.13) H 06/13/17 04:56 APTT 31.6 Sec. (24.2-36.6) 06/11/17 14:50 Sodium 133 mmol/L (137-145) L 06/13/17 04:56 Potassium 3.5 mmol/L (3.6-5.0) L D 06/13/17 04:56 Chloride 94.4 mmol/L (98-107) L 06/13/17 04:56 Carbon Dioxide 26 mmol/L (22-30) 06/13/17 04:56 Anion Gap 16 mmol/L 06/13/17 04:56 BUN 8 mg/dL (9-20) L 06/13/17 04:56 Creatinine 0.6 mg/dL (0.8-1.5) L 06/13/17 04:56 Estimated GFR > 60 ml/min 06/13/17 04:56 BUN/Creatinine Ratio 13 % 06/13/17 04:56 Glucose 237 mg/dL (75-100) H 06/13/17 04:56 POC Glucose 346 (70-105) H 06/13/17 11:32 Hemoglobin A1c 14.8 % (4-6) H 06/13/17 04:56 Calcium 8.7 mg/dL (8.4-10.2) 06/13/17 04:56 Magnesium 2.20 mg/dL (1.7-2.3) 06/11/17 14:50 Total Bilirubin 1.60 mg/dL (0.1-1.2) H 06/11/17 10:44 AST 13 units/L (5-40) 06/11/17 10:44 ALT 9 units/L (7-56) 06/11/17 10:44 Alkaline Phosphatase 110 units/L (35-129) 06/11/17 10:44 NT-Pro-B Natriuret Pep 511.7 pg/mL (0-900) 06/12/17 07:50 Total Protein 7.9 g/dL (6.3-8.2) 06/11/17 10:44 Albumin 3.4 g/dL (3.9-5) L 06/11/17 10:44 Albumin/Globulin Ratio 0.8 % 06/11/17 10:44 TSH 2.070 mlU/mL (0.270-4.200) 06/11/17 14:50 Free T4 1.42 ng/dL (0.76-1.46) 06/11/17 14:50 Urine Color Yellow (Yellow) 06/11/17 15:06 Urine Turbidity Cloudy (Clear) 06/11/17 15:06 Urine pH 6.0 (5.0-7.0) 06/11/17 15:06 Ur Specific [place] 1.032 (1.003-1.030) H 06/11/17 15:06 Urine Protein 30 mg/dl mg/dL (Negative) 06/11/17 15:06 Urine Glucose (UA) >=500 mg/dL (Negative) 06/11/17 15:06 Urine Ketones Tr mg/dL (Negative) 06/11/17 15:06 Urine Blood Lg (Negative) 06/11/17 15:06 Urine Nitrite Pos (Negative) 06/11/17 15:06 Urine Bilirubin Neg (Negative) 06/11/17 15:06 Urine Urobilinogen < 2.0 mg/dL (<2.0) 06/11/17 15:06 Ur Leukocyte Esterase Lg (Negative) 06/11/17 15:06 Urine WBC (Auto) > 182.0 /HPF (0.0-6.0) H 06/11/17 15:06 Urine RBC (Auto) 34.0 /HPF (0.0-6.0) 06/11/17 15:06 Urine WBC Clumps 3+ /HPF 06/11/17 15:06
[2017-06-13] MEDS: LANOXIN PO SCH (16:22)
[2017-06-13] MEDS: COUMADIN PO SCH (16:23)
[2017-06-13] MEDS ORDERED: HUMALOG SC SCH (16:30)
[2017-06-13] MEDS: LEVEMIR SUB-Q SCH (22:37)
[2017-06-13] MEDS: LOVENOX SUB-Q SCH (22:37)
[2017-06-14] MEDS: CARDIZEM PO SCH ×4 (00:44→17:13)
[2017-06-14 05:33] LABS: Hematocrit 38.4 % (35.5-45.6); Hemoglobin 12.8 gm/dl (11.8-15.2); Mean Corpuscular HGB Conc 33 % (32-34); Mean Corpuscular Hemoglobin 31 pg (28-32); Mean Corpuscular Volume 92 fl (84-94); Platelet Count 181 K/mm3 (140-440); Red Blood Count 4.17 M/mm3 (3.65-5.03); Red Cell Distribution Width 14.3 % (13.2-15.2)
[2017-06-14 06:03] LABS: BUN/Creatinine Ratio 13; Blood Urea Nitrogen 8 mg/dL (9-20); Calcium 8.7 mg/dL (8.4-10.2); Hemolysis Index 9
[2017-06-14] MEDS: LASIX IV SCH ×2 (06:11→17:13)
[2017-06-14] MEDS ORDERED: CARDIZEM CD PO SCH (10:00)
[2017-06-14] MEDS: MIRALAX 3350 PO SCH (10:22)
[2017-06-14] MEDS: K-DUR PO SCH ×2 (10:22→22:14)
[2017-06-14] MEDS: cefTRIAXone 2 GM in NACL 0.9% 20 ML IV SCH (10:24)
[2017-06-14] MEDS: NOVOLOG SUB-Q SCH ×7 (10:24→22:15)
--- NOTE | 2017-06-14 10:25 | Query-Infection ---
Dear Nicolas Date:____06/14/17 Field Project Manager/CDS:____Rohit Phone#:____[phone] Exercise your independent professional judgment when responding to this query. Questions asked do not imply a particular answer is desired or expected. We greatly appreciate your clarification on this issue. Clinical Documentation States: 62 year old male was admitted on 06/12/17 The progress note (Dr. Valenzuela 06/13/17) states " presented with constipation and dysuria, he was found to have UTI on urinalysis and AFib with rvr; -UTI most likely prostatitis: Treat with IV antibiotics, " Pulse rate: 185 Respiratory rate: 25 WBC: 12.8 Clinical findings show: (please check applicable parameters) Infection, known /suspected, with some of the following indicators; Specify the infection: 3 General parameters [ ] Fever (core temp >38.30C or 100.40F) [ ] Hypothermia (core temp <36C) [x ] Heart rate >90 bpm [ x] Tachypnea: >20 bpm or pCO2 < 32 mmHg [ ] Altered mental status [ ] Significant edema / +ve fluid balance (>20 ml/kg 24 h) [ ] Hyperglycemia (Bl. glucose >110 mg/dl) w/o diabetes Inflammatory parameters [x ] Leukocytosis (white blood cell count >12,000/l) [ ] Leukopenia (white blood cell count <4,000/l) [ ] Bandemia (immature WBC > 10%) [ ] Leucocyte Left Shift [ ] Plasma procalcitonin>2 SD above the normal value Hemodynamic and tissue perfusion parameters [ ] Arterial hypotension(SBP <90 mmHg, MAP <70 mmHg,or a SBP drop >40 mmHg in adults) [ ] Hyperlactatemia (>3 mmol/l) [ ] Anion Gap (> 11mEG/l) [ ] Decreased capillary refill or mottling Organ dysfunction parameters [ ] Arterial hypoxemia (PaO2/FIO2 <300) [ ] Creatinine increase =0.5 mg/dl [ ] Acute oliguria (urine output <0.5 ml | kg |h or 45 mM/l for at least 2 hrs) [ ] Coagulation abnormalities (INR >1.5 or activated partial thromboplastin time >60 s) [ ] Ileus (absent chikis wel sounds) [ ] Thrombocytopenia (platelet count <100,000/l) [ ] Hyperbilirubinemia (plasma total bilirubin >4 mg/dl) According to the clinical indications above, can Bacteremia be further specified? If so, please indicate below and in your Progress Notes and/ or Discharge Summary. Indicate if the condition was present on admission. PHYSICIAN RESPONSE: [ x] Sepsis [ ] Severe Sepsis [ ] Septic Shock [ ] Septicemia [ ] Sepsis now resolved [ ] SIRS due to non-infectious cause with organ dysfunction [ ] SIRS due to non-infectious cause without organ dysfunction [ ] Other: [ ] Comment/Explanation: Present on Admission: [ x] Yes (Y) [ ] Clinically undeterminable (W) [ ] No (N) [ ] Ruled Out Please also document response in your Progress Notes and/or Discharge Summary and indicate if the condition was present on admission Notes: SIRS/ SIRS WITH ORGAN DYSFUNCTION Systemic inflammatory response syndrome (SIRS) generally refers to the systemic response to trauma/lee or other insult such as Acute Myocardial Infarction, Acute Pancreatitis, and Major Surgery with symptoms including fever, tachycardia , tachypnea, and leukocytosis (1). BACTEREMIA Presence of viable bacteria in the circulating blood (2). This term is reserved for patients that do not manifest above SIRS response. SEPTICEMIA Generally refers to a systemic disease associated with the presence of pathological microorganisms or toxins in the blood, which can include bacteria, viruses, fungi or other organisms (1). SEPSIS Generally refers to SIRS due infection (1). SEVERE SEPSIS Generally refers to sepsis associated with acute organ dysfunction (1). SEPTIC SHOCK Generally refers to circulatory failure associated with severe sepsis (2), and defined as hypotension or hypoperfusion despite adequate fluid resuscitation (1 hour) (3). REFERENCES: 1. [place] [employer]/Society of Critical Care Medicine Consensus Conference. Definitions for sepsis and organ failure and guidelines for the use of innovative therapies in sepsis. Critical Care Med 1992;20:864 - 74. 2. Kana ledezma MM, Kevin MP, Foreign NOEL, Marco Antonio E, Earl D, Yves D, Victorino J, Rachele COBURN , Gonzalo JL, Gabi G; International Sepsis Definitions Conference. 2001 SCCM/ESICM/ACCP/ATS/SIS International Sepsis Definitions Conference. Intensive Care Med. 2002;29(4):530-8. Epub 2002Sep 07. Review. PubMed PMID:[id number] 3. ICD-9-CM Official Guidelines for Coding and Reporting 4. Medscape Drugs, Diseases and Procedures references 5. [employer] Textbook of Internal Medicine. 18th Edition MTDD
--- NOTE | 2017-06-14 10:53 | Progress Note ---
Assessment and Plan Chronic atrial fibrillation on digitalis, Cardizem, and warfarin therapy resumed Diabetes mellitus Noncompliant with medical therapy as an outpatient An echocardiogram done today, reports a normal left ventricular systolic function, EF 50-55%. Continue current management for chronic atrial fibrillation. Subjective Date of service: 06/14/17 Interval history: Stable afib on telemetry monitoring. Objective Vital Signs Temp Pulse Resp BP Pulse Ox 06/14/17 08:02 98.5 F 99 H 20 121/69 95 06/14/17 05:14 98.8 F 95 H 20 116/75 93 06/13/17 23:10 99.2 F 103 H 18 123/60 92 06/13/17 20:27 99.6 F 111 H 18 136/84 95 06/13/17 20:00 112 H 06/13/17 16:30 140 H 06/13/17 16:22 122 H 06/13/17 15:59 98.8 F 122 H 20 134/72 93 06/13/17 11:30 99.7 F H 92 H 18 128/81 95 - Physical Examination General: No Apparent Distress HEENT: Positive: PERRL Cardiac: Positive: irregularly irregular Neuro: Positive: Grossly Intact - Labs and Meds CBC 06/14/17 Range/Units 04:53 WBC 11.0 (4.5-11.0) K/mm3 RBC 4.17 (3.65-5.03) M/mm3 Hgb 12.8 (11.8-15.2) gm/dl Hct 38.4 (35.5-45.6) % Plt Count 181 (140-440) K/mm3 Comprehensive Metabolic Panel 06/14/17 Range/Units 04:53 Sodium 136 L (137-145) mmol/L Potassium 3.6 (3.6-5.0) mmol/L Chloride 94.8 L (98-107) mmol/L Carbon Dioxide 27 (22-30) mmol/L BUN 8 L (9-20) mg/dL Creatinine 0.6 L (0.8-1.5) mg/dL Glucose 146 H (75-100) mg/dL Calcium 8.7 (8.4-10.2) mg/dL - Imaging and Cardiology EKG: report reviewed (Afib with rvr 160 per min)
--- NOTE | 2017-06-14 15:00 | Progress Note ---
Assessment and Plan Assessment and plan: Patient is a 62 yo man with h/o htn, dm type 2 with peripheral neuropathy, left hearing loss from clindamycin, CHF, atrial fibrillation and noncompliance with medication due to loss of [employer] insurance who presented with constipation and dysuria, he was found to have UTI on urinalysis and AFib with rvr; he received multiple doses of IV Cardizem and one dose of digoxin. I have spoken with Sales And Marketing Associate, Dr. Mina. -Constipation: Treat with Dulcolax suppository 1, order portable abdominal x- ray unremarkable, get CT ab/pelvis, start miralax, -UTI most likely prostatitis: Treat with IV antibiotics, follow urine culture, needs outpatient urology follow-up for PSA and prostate cancer evaluation -A. fib RVR: Cardiology to manage -Type 2 diabetes mellitus, uncontrolled: levemir and ssi -DVT prophylaxis: started on a/c -BPH and bladder wall thicken: outpatient urology Evaluation increased Levemir once heart rate under control will discharge, probable tomorrow 06/14/2017: He went to the bathroom and unable to have a BM, his heart increased to the 120s and he became sob with limited activity. Will consult GI regarding the constipation History Interval history: Patient seen and examined. His main compliant is constipation and burning urine. Constipated x 1 week, only relief from mag citrate. His last colonoscopy less than 5 years ago and prostate was ok but details are vague. No cp, sob, palpitations. He just doesn't understand why we are focused on the heart rate and heart when his main issue is constipation. He did have relief with suppository and miralax Hospitalist Physical - Physical exam Narrative exam: GEN: Morbidly obese malnutrition are present such as atrophic hypotenar muscles and religion muscle wasting NAD, AWAKE, ALERT, ORIENTATED x 3 HEENT: NCAT, EOMI, PERRL, OP Clear NECK: supple, no adenopathy, no thyromegaly, no JVD CVS/HEART: irregular irregular, NORMAL S1S2, NO JVD, pulses present bilaterally CHEST/LUNGS: CTA B, Symmetrical chest expansion, good air entry bilaterally GI/Abdomen: soft, NTND, good bowel sounds, no guarding or rebound /Bladder: no suprapubic tenderness, no CVA or paraspinal tenderness EXT/Skin: pretibial edema, multiple healed skin breakdown, left elbow with skin tear. MSK: FROM x 4 Neuro: CN 2-12 grossly intact except left hearing loss, no new focal deficits Psych: calm - Constitutional Vitals: Temp Pulse Resp BP Pulse Ox 98.5 F 118 H 19 135/64 95 06/14/17 08:02 06/14/17 12:04 06/14/17 10:00 06/14/17 12:04 06/14/17 08:02 General appearance: Present: no acute distress, well-nourished Results - Labs CBC & Chem 7: 06/14/17 04:53 06/14/17 04:53 Labs: Laboratory Last Values WBC 11.0 K/mm3 (4.5-11.0) 06/14/17 04:53 RBC 4.17 M/mm3 (3.65-5.03) 06/14/17 04:53 Hgb 12.8 gm/dl (11.8-15.2) 06/14/17 04:53 Hct 38.4 % (35.5-45.6) 06/14/17 04:53 MCV 92 fl (84-94) 06/14/17 04:53 MCH 31 pg (28-32) 06/14/17 04:53 MCHC 33 % (32-34) 06/14/17 04:53 RDW 14.3 % (13.2-15.2) 06/14/17 04:53 Plt Count 181 K/mm3 (140-440) 06/14/17 04:53 Lymph % (Auto) 15.4 % (13.4-35.0) 06/11/17 10:44 [place] % (Auto) 10.2 % (0.0-7.3) H 06/11/17 10:44 Eos % (Auto) 0.1 % (0.0-4.3) 06/11/17 10:44 Baso % (Auto) 0.5 % (0.0-1.8) 06/11/17 10:44 Lymph # 1.9 K/mm3 (1.2-5.4) 06/11/17 10:44 [place] # 1.2 K/mm3 (0.0-0.8) H 06/11/17 10:44 Eos # 0.0 K/mm3 (0.0-0.4) 06/11/17 10:44 Baso # 0.1 K/mm3 (0.0-0.1) 06/11/17 10:44 Seg Neutrophils % 73.8 % (40.0-70.0) H 06/11/17 10:44 Seg Neutrophils # 8.9 K/mm3 (1.8-7.7) H 06/11/17 10:44 PT 17.0 Sec. (12.2-14.9) H 06/13/17 04:56 INR 1.31 (0.87-1.13) H 06/13/17 04:56 APTT 31.6 Sec. (24.2-36.6) 06/11/17 14:50 Sodium 136 mmol/L (137-145) L 06/14/17 04:53 Potassium 3.6 mmol/L (3.6-5.0) 06/14/17 04:53 Chloride 94.8 mmol/L (98-107) L 06/14/17 04:53 Carbon Dioxide 27 mmol/L (22-30) 06/14/17 04:53 Anion Gap 18 mmol/L 06/14/17 04:53 BUN 8 mg/dL (9-20) L 06/14/17 04:53 Creatinine 0.6 mg/dL (0.8-1.5) L 06/14/17 04:53 Estimated GFR > 60 ml/min 06/14/17 04:53 BUN/Creatinine Ratio 13 % 06/14/17 04:53 Glucose 146 mg/dL (75-100) H 06/14/17 04:53 POC Glucose 315 (70-105) H 06/14/17 11:55 Hemoglobin A1c 14.8 % (4-6) H 06/13/17 04:56 Calcium 8.7 mg/dL (8.4-10.2) 06/14/17 04:53 Magnesium 2.20 mg/dL (1.7-2.3) 06/11/17 14:50 Total Bilirubin 1.60 mg/dL (0.1-1.2) H 06/11/17 10:44 AST 13 units/L (5-40) 06/11/17 10:44 ALT 9 units/L (7-56) 06/11/17 10:44 Alkaline Phosphatase 110 units/L (35-129) 06/11/17 10:44 NT-Pro-B Natriuret Pep 511.7 pg/mL (0-900) 06/12/17 07:50 Total Protein 7.9 g/dL (6.3-8.2) 06/11/17 10:44 Albumin 3.4 g/dL (3.9-5) L 06/11/17 10:44 Albumin/Globulin Ratio 0.8 % 06/11/17 10:44 TSH 2.070 mlU/mL (0.270-4.200) 06/11/17 14:50 Free T4 1.42 ng/dL (0.76-1.46) 06/11/17 14:50 Urine Color Yellow (Yellow) 06/11/17 15:06 Urine Turbidity Cloudy (Clear) 06/11/17 15:06 Urine pH 6.0 (5.0-7.0) 06/11/17 15:06 Ur Specific [place] 1.032 (1.003-1.030) H 06/11/17 15:06 Urine Protein 30 mg/dl mg/dL (Negative) 06/11/17 15:06 Urine Glucose (UA) >=500 mg/dL (Negative) 06/11/17 15:06 Urine Ketones Tr mg/dL (Negative) 06/11/17 15:06 Urine Blood Lg (Negative) 06/11/17 15:06 Urine Nitrite Pos (Negative) 06/11/17 15:06 Urine Bilirubin Neg (Negative) 06/11/17 15:06 Urine Urobilinogen < 2.0 mg/dL (<2.0) 06/11/17 15:06 Ur Leukocyte Esterase Lg (Negative) 06/11/17 15:06 Urine WBC (Auto) > 182.0 /HPF (0.0-6.0) H 06/11/17 15:06 Urine RBC (Auto) 34.0 /HPF (0.0-6.0) 06/11/17 15:06 Urine WBC Clumps 3+ /HPF 06/11/17 15:06
--- NOTE | 2017-06-14 15:39 | Consultation ---
History of Present Illness - Reason for Consult Consult date: 06/14/17 Constipation - History of Present Illness See dictated note. Past History Past Medical History: atrial fib, diabetes, hypertension Medications and Allergies Allergies Allergy/AdvReac Type Severity Reaction Status Date / Time clindamycin AdvReac Unknown Verified 06/12/17 09:09 Home Medications Medication Instructions Recorded Confirmed Last Taken Type Humalog 30 units SC AC 06/13/17 06/13/17 06/11/17 17:00 History Insulin Glargine,Hum.rec.anlog 55 unit SC HS 06/13/17 06/13/17 06/11/17 History [Lantus] Active Meds: Active Medications Dextrose (D50w (25gm) Syringe) 50 ml IV PRN PRN PRN Reason: Hypoglycemia Digoxin (Lanoxin) 0.25 mg PO DAILY@1700 [facility] Last Admin: 06/13/17 16:22 Dose: 0.25 mg Diltiazem HCl (Cardizem) 90 mg PO Q6HR [facility] Last Admin: 06/14/17 12:04 Dose: 90 mg Enoxaparin Sodium (Lovenox) 40 mg SUB-Q QDAY@2200 [facility] Last Admin: 06/13/17 22:37 Dose: 40 mg Furosemide (Lasix) 40 mg IV 0600,1800 [facility] Last Admin: 06/14/17 06:11 Dose: 40 mg Ceftriaxone Sodium 2 gm/ (Sodium Chloride) 20 mls @ 20 mls/10 min IV Q24HR [facility] Last Admin: 06/14/17 10:24 Dose: 20 mls/10 min Insulin Aspart (Novolog) 0 units SUB-Q ACHS [facility] PRN Reason: Protocol Last Admin: 06/14/17 12:14 Dose: 8 units Insulin Aspart (Novolog) 30 units SUB-Q AC [facility] Last Admin: 06/14/17 12:15 Dose: 30 units Insulin Detemir (Levemir) 30 units SUB-Q QHS [facility] Last Admin: 06/13/17 22:37 Dose: Not Given Metoprolol Tartrate (Lopressor) 5 mg IV Q2H PRN PRN Reason: HR >130 Last Admin: 06/13/17 09:24 Dose: 5 mg Polyethylene Glycol (Miralax 3350) 17 gm PO QDAY [facility] Last Admin: 06/14/17 10:22 Dose: 17 gm Potassium Chloride (K-Dur) 20 meq PO BID [facility] Last Admin: 06/14/17 10:22 Dose: 20 meq Warfarin Sodium (Coumadin) 10 mg PO DAILY@1700 [facility] PRN Reason: Protocol Stop: 06/15/17 16:59 Last Admin: 06/13/17 16:23 Dose: 10 mg Warfarin Sodium (Coumadin Pharmacy To Dose) 1 each PO PKCONSULT [facility] PRN Reason: Protocol Warfarin Sodium (Coumadin) 7.5 mg PO DAILY@1700 [facility] Exam - Constitutional Vitals: Temp Pulse Resp BP Pulse Ox 98.5 F 118 H 19 135/64 95 06/14/17 08:02 06/14/17 12:04 06/14/17 10:00 06/14/17 12:04 06/14/17 08:02 Results - Labs CBC & Chem 7: 06/14/17 04:53 06/14/17 04:53 Labs: Abnormal lab results 06/13/17 06/13/17 06/13/17 Range/Units 16:04 21:40 22:50 Sodium (137-145) mmol/L Chloride (98-107) mmol/L BUN (9-20) mg/dL Creatinine (0.8-1.5) mg/dL Glucose (75-100) mg/dL POC Glucose 297 H 56 L 122 H (70-105) 06/14/17 06/14/17 06/14/17 Range/Units 04:53 08:08 11:55 Sodium 136 L (137-145) mmol/L Chloride 94.8 L (98-107) mmol/L BUN 8 L (9-20) mg/dL Creatinine 0.6 L (0.8-1.5) mg/dL Glucose 146 H (75-100) mg/dL POC Glucose 211 H 315 H (70-105) Assessment and Plan Pt with 5 d hx of suprapubic fullness sensation with change in BMs to feeling constipated but having small amount of output daily, no bleed. Rectal exam normal. Pt states he had a colonoscopy 2 yrs ago by [facility]. Plan- Check gastrograffin enema to exclude obstruction and provide laxation
[2017-06-14] MEDS: LANOXIN PO SCH (17:13)
[2017-06-14 18:27] LABS: INR 1.08 (0.87-1.13)
[2017-06-14] MEDS: COUMADIN PO SCH (18:48)
[2017-06-14] MEDS: LEVEMIR SUB-Q SCH (22:14)
[2017-06-14] MEDS: LOVENOX SUB-Q SCH (22:14)
[2017-06-15] MEDS: CARDIZEM PO SCH ×2 (01:14→06:10)
--- NOTE | 2017-06-15 01:42 | Consultation ---
REASON FOR CONSULTATION: Constipation. HISTORY OF PRESENT ILLNESS: The patient is a 62-year-old man with a history of congestive heart failure with LVEF equal to 50% to 55% this admission, diabetes, hypertension and atrial fibrillation. The patient presented to the Emergency Room complaining of a 5-day history of suprapubic fullness with mild relief with passing flatus and change in bowel habits from his usual solid once a day to having may be small amounts of liquid stool on a once a day basis. He denied nausea, vomiting, fevers, chills or sweats. There had been no weight loss. He did have a history of colonoscopy 2 years ago at [place], according to him. There was no GI bleeding noted. He denied dysuria or hematuria. Of note, the patient was admitted to the hospital because he was found to be in atrial fibrillation with rapid ventricular response rate, which has been brought under control. An echocardiogram has been done. CT of the abdomen and pelvis was done on 06/12, which was notable for a normal amount of stool noted within the colon and no evidence of obstruction. There was nonspecific diffuse prostate enlargement, and there was hepatomegaly, with fatty liver. The patient denies prior similar symptoms. ALLERGIES: He has an allergy to CLINDAMYCIN. MEDICATIONS: At home, he is on Humalog insulin. PAST MEDICAL HISTORY: He has history of: 1. Diabetes -- poorly compliant. 2. Atrial fibrillation. 3. History of congestive heart failure. FAMILY HISTORY: Noncontributory. SOCIAL HISTORY: Negative for tobacco recently or for alcohol. REVIEW OF SYSTEMS: Negative for chest pain, shortness of breath, cough, hemoptysis, dysuria, hematuria. PHYSICAL EXAMINATION: GENERAL: This is an obese, middle-aged black male, who appears older than stated age. VITAL SIGNS: Temperature 98.5, pulse 118, blood pressure 135/64. HEENT: Pupils are round and reactive. Oropharynx is clear. LUNGS: Clear bilaterally to auscultation. CARDIOVASCULAR: Irregularly/irregular with tachycardia. No extra heart sounds. ABDOMEN: Obese but soft, good bowel sounds and no organomegaly or tenderness to deep palpation. RECTAL: Normal with no masses and soft brown stool. No blood was noted. EXTREMITIES: Show 2+ edema and there are skin changes on both shins consistent with vascular insufficiency. NEUROLOGIC: He is alert, oriented x 3, grossly nonfocal. LABORATORY DATA: His white count is 11.0; hemoglobin 12.8; hematocrit 38.4; MCV of 92; platelet count 181,000. Sodium 136, potassium 3.6, chloride 95, bicarb 27, BUN 8, creatinine 0.6, glucose is 146, AST was 13, ALT 9, alk phos 110, total bilirubin is 1.6. IMPRESSION: Suprapubic fullness -- the patient has the sensation, which has no clear etiology. He feels constipated. CT scan does not confirm evidence of constipation, this can be difficult to assess. I would recommend a Gastrografin enema to exclude obstruction and ensure adequate laxation. If that is negative, a urologic evaluation may be warranted, especially given the thickening of the bladder wall that is seen, which may just represent decompression. Colonoscopy at this point, does not appear to be warranted given the patient had one 2 years ago and has normal labs. Case was discussed with Dr. Valenzuela. JOB# [id number] HRC/NTS
[2017-06-15 05:47] LABS: Hematocrit 38.4 % (35.5-45.6); Hemoglobin 12.8 gm/dl (11.8-15.2); Mean Corpuscular HGB Conc 33 % (32-34); Mean Corpuscular Hemoglobin 31 pg (28-32); Mean Corpuscular Volume 93 fl (84-94); Platelet Count 201 K/mm3 (140-440); Red Blood Count 4.15 M/mm3 (3.65-5.03); Red Cell Distribution Width 14.1 % (13.2-15.2)
[2017-06-15 06:10] LABS: BUN/Creatinine Ratio 19; Blood Urea Nitrogen 13 mg/dL (9-20); Calcium 8.8 mg/dL (8.4-10.2); Hemolysis Index 6
[2017-06-15] MEDS: LASIX IV SCH (06:10)
[2017-06-15] MEDS: NOVOLOG SUB-Q SCH ×4 (09:10→13:51)
[2017-06-15] MEDS: MIRALAX 3350 PO SCH (09:10)
[2017-06-15] MEDS: cefTRIAXone 2 GM in NACL 0.9% 20 ML IV SCH (09:11)
[2017-06-15] MEDS: K-DUR PO SCH (09:12)
--- NOTE | 2017-06-15 09:48 | Progress Note ---
Assessment and Plan Chronic atrial fibrillation, rate control on digitalis, Cardizem, and warfarin therapy Diabetes mellitus Noncompliant with medical therapy as an outpatient An echocardiogram done, reports severe dilation of the right heart chambers. Mild left ventricular systolic dysfunction, EF 45%. Continue current management for chronic atrial fibrillation. Subjective Date of service: 06/15/17 Interval history: No cardiac events reported overnight. Stable afib on telemetry monitoring. Objective Vital Signs Temp Pulse Resp BP Pulse Ox 06/15/17 08:33 99.4 F 91 H 20 118/57 95 06/15/17 06:10 103 H 106/63 06/15/17 04:28 98.6 F 103 H 20 106/63 93 06/15/17 01:14 101 H 108/46 06/15/17 00:19 98.6 F 101 H 20 106/49 92 06/14/17 19:34 98.9 F 99 H 22 135/77 92 06/14/17 17:13 105 H 142/77 06/14/17 16:43 101.0 F H 104 H 20 142/77 93 06/14/17 12:04 118 H 135/64 06/14/17 11:47 98.3 F 87 20 135/64 96 06/14/17 10:00 19 - Physical Examination Cardiac: Positive: irregularly irregular - Labs and Meds Coagulation 06/14/17 Range/Units 16:47 PT 14.6 (12.2-14.9) Sec. INR 1.08 (0.87-1.13) CBC 06/15/17 Range/Units 04:50 WBC 9.3 (4.5-11.0) K/mm3 RBC 4.15 (3.65-5.03) M/mm3 Hgb 12.8 (11.8-15.2) gm/dl Hct 38.4 (35.5-45.6) % Plt Count 201 (140-440) K/mm3 Comprehensive Metabolic Panel 06/15/17 Range/Units 04:50 Sodium 133 L (137-145) mmol/L Potassium 3.7 (3.6-5.0) mmol/L Chloride 92.8 L (98-107) mmol/L Carbon Dioxide 27 (22-30) mmol/L BUN 13 (9-20) mg/dL Creatinine 0.7 L (0.8-1.5) mg/dL Glucose 304 H (75-100) mg/dL Calcium 8.8 (8.4-10.2) mg/dL - Imaging and Cardiology EKG: report reviewed (Afib with rvr 160 per min)
[2017-06-15] MEDS ORDERED: CARDIZEM CD PO SCH ×2 (10:00→11:00)
--- NOTE | 2017-06-15 10:00 | Gastroenterology Progress Note ---
Assessment and Plan 1.suprapubic fullness 2.constipation? -pt reports BMs x 3 with small amount of formed stool overnight and this am with slight improvement in suprapubic fullness sensation -CT scan does not confirm evidence of constipation -will order Gastrografin enema today to exclude obstruction and ensure adequate laxation -if negative will consider urologic evaluation given thickening of the bladder wall that is seen -last colonoscopy 2 years ago, no plans to repeat at this time -continue Miralax and supportive care -will follow Subjective Date of service: 06/15/17 Principal diagnosis: constipation Interval history: Patient walking from bathroom to bed this am w/o distress. Reports BMs x 3 overnight and this am with small amount of formed stool. States suprapubic fullness sensation is still present but seems to be slightly improved after BMs. No abd pain or N/V. Objective - Constitutional Vitals: Temp Pulse Resp BP Pulse Ox 99.4 F 91 H 20 118/57 95 06/15/17 08:33 06/15/17 08:33 06/15/17 08:33 06/15/17 08:33 06/15/17 08:33 General appearance: no acute distress, obese - EENT Eyes: PERRL, EOM intact ENT: hearing intact - Respiratory Respiratory: bilateral: CTA - Cardiovascular Rhythm: irregularly irregular Heart Sounds: Present: S1 & S2 - Gastrointestinal General gastrointestinal: Present: soft, non-tender, non-distended, normal bowel sounds - Neurologic Neurological: alert and oriented x3 - Labs CBC & Chem 7: 06/15/17 04:50 06/15/17 04:50 Labs: Laboratory Results - last 24 hr 06/14/17 06/14/17 06/14/17 11:55 16:47 16:49 WBC RBC Hgb Hct MCV MCH MCHC RDW Plt Count PT 14.6 INR 1.08 Sodium Potassium Chloride Carbon Dioxide Anion Gap BUN Creatinine Estimated GFR BUN/Creatinine Ratio Glucose POC Glucose 315 H 106 H Calcium 06/14/17 06/15/17 06/15/17 21:11 04:50 04:50 WBC 9.3 RBC 4.15 Hgb 12.8 Hct 38.4 MCV 93 MCH 31 MCHC 33 RDW 14.1 Plt Count 201 PT INR Sodium 133 L Potassium 3.7 Chloride 92.8 L Carbon Dioxide 27 Anion Gap 17 BUN 13 Creatinine 0.7 L Estimated GFR > 60 BUN/Creatinine Ratio 19 Glucose 304 H POC Glucose 305 H Calcium 8.8
--- NOTE | 2017-06-15 13:21 | Fluoroscopy Report ---
Gastrografin enema. History: Constipation. Findings: Gastrografin was instilled in a retrograde fashion. The colon is normal in course and caliber. Mild scattered stool is identified.
[2017-06-15 13:52] VITALS: BP 138/82
--- NOTE | 2017-06-15 14:18 | Discharge Summary ---
Providers - Providers Date of Admission: 06/11/17 15:33 Date of discharge: 06/15/17 Attending physician: DAVID BERMAN 06/14/17 12:52 Consult to Physician [CONS] Routine Consulting Provider: SUKH MORRIS Reason For Exam: constipation Place consult to:: gi Notified:: office Phone number called:: [phone] Was contact made?: Yes If yes, spoke with:: kristin Mckinley called:: 12:58 06/12/17 07:22 Consult to Physician [CONS] Routine Consulting Provider: ARTURO BEASLEY Reason For Exam: afib with rvr Place consult to:: Notified:: Phone number called:: [phone] Was contact made?: Yes If yes, spoke with:: KIMBERLY Time called:: 09:47 Comment:: NAV 06/12/17 07:45 Consult to Wound/ET Nurse [CONS] Routine Reason For Exam: wound eval Primary care physician: JONATHAN MAYFIELD Hospitalization Condition: Stable Hospital course: Patient is a 62 yo man with h/o htn, dm type 2 with peripheral neuropathy, left hearing loss from clindamycin, CHF, atrial fibrillation and noncompliance with medication due to loss of [employer] insurance who presented with constipation and dysuria, he was found to have UTI on urinalysis and AFib with rvr; he received multiple doses of IV Cardizem and one dose of digoxin. I have spoken with Flight Readiness Technician, Dr. Beasley. -Constipation: Treat with Dulcolax suppository 1, order portable abdominal x- ray unremarkable, get CT ab/pelvis, start miralax, -UTI most likely prostatitis: Treat with IV antibiotics, follow urine culture, needs outpatient urology follow-up for PSA and prostate cancer evaluation -A. fib RVR: Cardiology to manage -Type 2 diabetes mellitus, uncontrolled: levemir and ssi -DVT prophylaxis: started on a/c -BPH and bladder wall thicken: outpatient urology Evaluation increased Levemir once heart rate under control will discharge, probable tomorrow 06/14/2017: He went to the bathroom and unable to have a BM, his heart increased to the 120s and he became sob with limited activity. Will consult GI regarding the constipation d/w GI Disposition: DC-01 TO HOME OR SELFCARE Time spent for discharge: 34 minutes Core Measure Documentation - Palliative Care Palliative Care/ Comfort Measures: Not Applicable - Core Measures Any of the following diagnoses?: none - VTE Discharge Requirements Deep Vein Thrombosis/Pulmonary Embolism Present on Admission: No Has pt received <5 days of overlap therapy or INR<2.0: No Anticoagulant overlap therapy prescribed at discharge: No Contraindication No Overlap Therapy order at DC: Not Indicated Exam - Physical Exam Narrative exam: GEN: Morbidly obese malnutrition are present such as atrophic hypotenar muscles and judaism muscle wasting NAD, AWAKE, ALERT, ORIENTATED x 3 HEENT: NCAT, EOMI, PERRL, OP Clear NECK: supple, no adenopathy, no thyromegaly, no JVD CVS/HEART: irregular irregular, NORMAL S1S2, NO JVD, pulses present bilaterally CHEST/LUNGS: CTA B, Symmetrical chest expansion, good air entry bilaterally GI/Abdomen: soft, NTND, good bowel sounds, no guarding or rebound /Bladder: no suprapubic tenderness, no CVA or paraspinal tenderness EXT/Skin: pretibial edema, multiple healed skin breakdown, left elbow with skin tear. MSK: FROM x 4 Neuro: CN 2-12 grossly intact except left hearing loss, no new focal deficits Psych: calm - Constitutional Vitals: Temp Pulse Resp BP Pulse Ox 99.4 F 80 18 138/82 95 06/15/17 08:33 06/15/17 13:52 06/15/17 10:00 06/15/17 13:52 06/15/17 08:33 Plan Activity: other (no strenous activity until cleared by Cardiology) Diet: low salt Additional Instructions: Check Warfarin level with [facility] Flight Readiness Technician office (address on the business card of Dr. Beasley) on Tuesday between 8-3pm . See Urologist, Dr. Bernardo for BPH and prostate Follow up with: JONATHAN MAYFIELD MD [Primary Care Provider] - 3-5 Days MARC COLON MD [Staff Physician] - 7 Days NUSRAT ALANIS NP [Advanced Practice Nurse] - 3 Days Forms: Warfarin Discharge Instruction Prescriptions: RX: Insulin Detemir [Levemir] 30 units SUB-Q QHS #30 units Cefuroxime [Ceftin] 500 mg PO BID #5 day RX: Digoxin [Lanoxin] 0.25 mg PO DAILY@1700 #30 tablet RX: Diltiazem Cd [Cardizem CD] 360 mg PO QDAY #30 day RX: Polyethylene Glycol 3350 [Miralax 3350] 17 gm PO QDAY PRN #30 powd.pack PRN Reason: Constipation RX: Potassium Chloride [K-Dur] 20 meq PO BID #30 day RX: Warfarin [Coumadin] 10 mg PO DAILY@1700 #30 day
[2017-06-15 14:54] LABS: INR 1.38 (0.87-1.13)
[2017-06-15] MEDS ORDERED: COUMADIN PO SCH ×3 (17:00)
== END 2017-06-15 15:53 | disposition home or self-care (01) | DRG 871 ==
LOC: ED 10:33 → 4A 15:33
PROVIDERS: ADMIT Internal Medicine; ATTEND Internal Medicine
PROC: 3E0234Z Introduction of Serum, Toxoid and Vaccine into Muscle, Percutaneous Approach (ICD-10-PCS; principal; 2017-06-12)
DX: A41.9 Sepsis, unspecified organism (principal); I50.43 Acute on chronic combined systolic (congestive) and diastolic (congestive) heart failure; I48.91 Unspecified atrial fibrillation; N39.0 Urinary tract infection, site not specified; N41.0 Acute prostatitis; K59.00 Constipation, unspecified; E11.42 Type 2 diabetes mellitus with diabetic polyneuropathy; I11.0 Hypertensive heart disease with heart failure; N40.0 Benign prostatic hyperplasia without lower urinary tract symptoms; Z23 Encounter for immunization; Z91.14 Patient's other noncompliance with medication regimen; Z88.1 Allergy status to other antibiotic agents
CPT/HCPCS: 36415; 74022; 74177; 74270; 80048; 80053; 81001; 82962; 83036; 83735; 83880; 84439; 84443; 85025; 85027; 85610; 85730; 90686; 93005; 93010; 93306; 96374; J0696; J1160; J1650; J1815; J1818; J1940; Q9963; Q9967

== ENCOUNTER 2017-11-25 12:22 | Emergency (ER) | payer MEDICAID ==
[2017-11-25 13:30] LABS: Bilirubin,Urine NEG (Negative); Blood,Urine LG (Negative); Color,Urine Yellow (Yellow); Hyaline Casts,Urine 1 /LPF; Mucus,Urine FEW /HPF; Urobilinogen,Urine < 2.0 mg/dL (<2.0)
[2017-11-25 13:41] LABS: Albumin 2.8 g/dL (3.9-5); Basophils % (Auto) 0.3 % (0.0-1.8); Calcium 8.5 mg/dL (8.4-10.2); Eosinophils % (Auto) 0.1 % (0.0-4.3); Hematocrit 27.9 % (35.5-45.6); Hemoglobin 9.1 gm/dl (11.8-15.2); Lymphocytes # (Auto) 1.1 K/mm3 (1.2-5.4); Lymphocytes % (Auto) 9.9 % (13.4-35.0); Mean Corpuscular HGB Conc 33 % (32-34); Mean Corpuscular Hemoglobin 29 pg (28-32); Mean Corpuscular Volume 89 fl (84-94); Mean Platelet Volume 8.8 fl (6-12); Monocytes # (Auto) 0.9 K/mm3 (0.0-0.8); Monocytes % (Auto) 8.5 % (0.0-7.3); Platelet Count 286 K/mm3 (140-440); Red Blood Count 3.13 M/mm3 (3.65-5.03); Red Cell Distribution Width 15.7 % (13.2-15.2)
[2017-11-25] MEDS ORDERED: ZOFRAN IV ONE ×2 (16:22→17:47)
[2017-11-25] MEDS ORDERED: MORPHINE IV ONE ×2 (16:22→17:46)
[2017-11-25] MEDS ORDERED: cefTRIAXone 1 GM in NACL 0.9% 20 ML IV SCH (16:30)
--- NOTE | 2017-11-25 16:30 | Emergency Department Report ---
ED General Adult HPI - General Chief complaint: Pain General Stated complaint: BILATERAL LEG PAIN Time Seen by Provider: 11/25/17 16:14 Source: patient Mode of arrival: Stretcher Limitations: No Limitations - History of Present Illness Initial comments: The patient complains of increased right flank pain that has been present for the last 3 weeks. Patient denies fever, chest pain, dysuria. Patient denies ever having symptoms like this before. Patient states about 3 months ago he had an infection of his left knee that was operated on at [facility]. -: Gradual Location: abdomen Radiation: other (radiation to groin) Severity scale (0 -10): 6 Quality: sharp Consistency: constant Improves with: none Worsens with: none Associated Symptoms: denies other symptoms Treatments Prior to Arrival: none - Related Data Previous Rx's Medication Instructions Recorded Last Taken Type Cefuroxime [Ceftin] 500 mg PO BID #5 day 06/15/17 Unknown Rx Detemir (Nf) [Levemir (Nf)] 30 units SUB-Q QHS #30 units 06/15/17 Unknown Rx Digoxin [Lanoxin] 0.25 mg PO DAILY@1700 #30 tablet 06/15/17 Unknown Rx Diltiazem Cd [Cardizem CD] 360 mg PO QDAY #30 day 06/15/17 Unknown Rx Humalog 30 units SC AC #30 06/15/17 06/11/17 17:00 Rx Insulin Glargine,Hum.rec.anlog 55 unit SC HS #30 06/15/17 06/11/17 Rx [Lantus] Polyethylene Glycol 3350 [Miralax 17 gm PO QDAY PRN #30 powd.pack 06/15/17 Unknown Rx 3350] Potassium Chloride [K-Dur] 20 meq PO BID #30 day 06/15/17 Unknown Rx Warfarin [Coumadin] 10 mg PO DAILY@1700 #30 day 06/15/17 Unknown Rx Allergies Allergy/AdvReac Type Severity Reaction Status Date / Time clindamycin AdvReac Unknown Verified 06/12/17 09:09 ED Review of Systems ROS: Stated complaint: BILATERAL LEG PAIN Other details as noted in HPI Comment: All other systems reviewed and negative Constitutional: denies: chills, fever Eyes: denies: eye pain, eye discharge, vision change ENT: denies: ear pain, throat pain Respiratory: denies: cough, shortness of breath, wheezing Cardiovascular: denies: chest pain, palpitations Endocrine: no symptoms reported Gastrointestinal: denies: abdominal pain, nausea, diarrhea Genitourinary: denies: urgency, dysuria Musculoskeletal: denies: back pain, joint swelling, arthralgia Skin: denies: rash, lesions Neurological: denies: headache, weakness, paresthesias Psychiatric: denies: anxiety, depression Hematological/Lymphatic: denies: easy bleeding, easy bruising ED Past Medical Hx - Past Medical History Hx Hypertension: Yes Hx Congestive Heart Failure: Yes Hx Diabetes: Yes Additional medical history: A FIB - Surgical History Past Surgical History?: No - Social History Smoking Status: Never Smoker Substance Use Type: None - Medications Home Medications: Home Medications Medication Instructions Recorded Confirmed Last Taken Type Cefuroxime [Ceftin] 500 mg PO BID #5 day 06/15/17 Unknown Rx Detemir (Nf) [Levemir (Nf)] 30 units SUB-Q QHS #30 units 06/15/17 Unknown Rx Digoxin [Lanoxin] 0.25 mg PO DAILY@1700 #30 tablet 06/15/17 Unknown Rx Diltiazem Cd [Cardizem CD] 360 mg PO QDAY #30 day 06/15/17 Unknown Rx Humalog 30 units SC AC #30 06/15/17 06/13/17 06/11/17 17:00 Rx Insulin Glargine,Hum.rec.anlog 55 unit SC HS #30 06/15/17 06/13/17 06/11/17 Rx [Lantus] Polyethylene Glycol 3350 [Miralax 17 gm PO QDAY PRN #30 powd.pack 06/15/17 Unknown Rx 3350] Potassium Chloride [K-Dur] 20 meq PO BID #30 day 06/15/17 Unknown Rx Warfarin [Coumadin] 10 mg PO DAILY@1700 #30 day 06/15/17 Unknown Rx ED Physical Exam - General Limitations: No Limitations General appearance: alert, in no apparent distress - Head Head exam: Present: atraumatic, normocephalic - Eye Eye exam: Present: normal appearance - ENT ENT exam: Present: mucous membranes moist - Neck Neck exam: Present: normal inspection - Respiratory Respiratory exam: Present: normal lung sounds bilaterally. Absent: respiratory distress - Cardiovascular Cardiovascular Exam: Present: regular rate, normal rhythm. Absent: systolic murmur, diastolic murmur, rubs, gallop - GI/Abdominal GI/Abdominal exam: Present: soft, normal bowel sounds - Rectal Rectal exam: Present: deferred - Extremities Exam Extremities exam: Present: normal inspection - Back Exam Back exam: Present: normal inspection - Neurological Exam Neurological exam: Present: alert, oriented X3, CN II-XII intact. Absent: motor sensory deficit - Psychiatric Psychiatric exam: Present: normal affect, normal mood - Skin Skin exam: Present: warm, dry, intact, normal color. Absent: rash ED Course Vital Signs 11/25/17 11/25/17 12:55 16:35 Temperature 98.9 F Pulse Rate 96 H 84 Respiratory 16 16 Rate Blood Pressure 149/95 Blood Pressure 175/86 [Left] O2 Sat by Pulse 95 96 Oximetry ED Medical Decision Making - Lab Data Result diagrams: 11/25/17 13:14 11/25/17 13:14 - Medical Decision Making Discussed patient with Dr. Chery at 1759 with [facility] and he was happy to see the patient as a documentation consultant [place]bent was on his saturation was not able to elicit the patient Spoke to at [facility] at 1830 and the patient was accepted IV antibiotics started Critical Care Time: Yes Critical care time in (mins) excluding proc time.: 60 Critical care attestation.: If time is entered above; I have spent that time in minutes in the direct care of this critically ill patient, excluding procedure time. ED Disposition Clinical Impression: Spondylodiscitis Disposition: [id number]/TX-[id number] ANOTHER TYPE HLTHCARE Is pt being admited?: No Does the pt Need Aspirin: No Condition: Fair Referrals: PRIMARY CARE, [Primary Care Provider] - 3-5 Days Time of Disposition: 19:06
--- NOTE | 2017-11-25 17:17 | Cat Scan Report ---
FINAL REPORT EXAM: CT ABDOMEN PELVIS WO CON HISTORY: flank pain TECHNIQUE: Axial images were performed from the lung bases to the pubic symphysis. Multiplanar reformats are performed on the acquisition scanner Comparison: 06/12/2017 at which time fatty liver, thickened urinary wall, L4 grade 1 spondylolisthesis with spondylolysis. FINDINGS: Small bilateral layering pleural effusions have developed. The heart is enlarged. There is left basal consolidation. Limited assessment without IV contrast. Fatty infiltrated enlarged liver. Unremarkable unenhanced spleen, pancreas, distended gallbladder, bilateral adrenal glands, and bilateral kidneys. Moderately distended urinary bladder. Prostate is not enlarged. No free air or free fluid. No significant fecal retention. Normal appendix right lower quadrant. Mild body wall anasarca. Scattered atheromatous occlusive disease of the aorta. No aneurysm. Grade 1 anterolisthesis L4 on L5 with bilateral spondylolysis. Interval erosion of the endplates inferior T8 and superior T9 with partial collapse of the T8 vertebral body. Phlegmonous process cannot be assessed due to the adjacent pleural effusions. The very patchy appearance of the vertebral bodies are extremely suspicious. IMPRESSION: Development of probable T8/T9 spondylodiscitis and perivertebral phlegmon. Abscess cannot assessed due to the pleural effusions. Partial collapse of the T8 vertebral body. No impingement of the spinal canal. Canal measures 14 millimeters. Recommend MRI thoracic spine targeted over this region without and with gadolinium. Critical level 1 result. Findings are called on 11/25/2017 at 1704 hours[address] Discussed directly with Dr. Hess at 1710 hours. Fatty enlarged liver.
[2017-11-25] MEDS ORDERED: VANCOMYCIN/NS 1 GM/250 ML 1 GM/250 ML BAG IV SCH (18:00)
[2017-11-25] MEDS ORDERED: VANCOMYCIN 2,000 MG in NACL 0.9% 500 ML 500 ML IV ONE (18:00)
[2017-11-25 20:21] VITALS: BP 150/84
== END 2017-11-25 22:53 | disposition other institution (70) ==
LOC: ED 12:22
DX: M47.899 Other spondylosis, site unspecified (principal); M46.40 Discitis, unspecified, site unspecified; I10 Essential (primary) hypertension; I50.9 Heart failure, unspecified; E11.9 Type 2 diabetes mellitus without complications; Z88.1 Allergy status to other antibiotic agents; Z79.4 Long term (current) use of insulin
CPT/HCPCS: 36415; 74176; 80053; 81001; 85025; 96365; 96368; 96375; 96376; 99291; J0696; J2270; J2405; J3370; J7040